=== PATIENT | male | born 1950 | race African-American/Black ===

== ENCOUNTER 2017-05-06 15:46 | Inpatient (IN) | payer OTHER ==
[~2017-05-06] VITALS: Ht 193 cm; Wt 94.8 kg
[2017-05-06 16:58] LABS: Alanine Aminotransferase 31 U/L (16-61); Albumin 3.6 g/dL (3.4-5.0); Alkaline Phosphatase 57 U/L (45-117); Anion Gap 6 (5-15); Aspartate Aminotransferase 23 U/L (15-37); BUN/Creatinine Ratio 8.2; Bilirubin, Total 2.4 mg/dL (0.2-1.0); Blood Urea Nitrogen 13 mg/dL (7-18); Calcium 8.9 mg/dL (8.5-10.1); Carbon Dioxide 25 mmol/L (21-32); Chloride 108 mmol/L (98-107); GFR African American 56 mL/min; GFR Non-African American 47 mL/min; Glucose 201 mg/dL (74-106); Magnesium 2.5 mg/dL (1.6-2.6); Potassium 4.3 mmol/L (3.5-5.1); Sodium 139 mmol/L (136-145); Total Protein 7.2 g/dL (6.4-8.2)
[2017-05-06 17:23] LABS: Basophils # (auto) 0 uL; Basophils % (auto) 0.3 % (0.0-2.0); Eosinophils # (auto) 0 uL; Eosinophils % (auto) 0.3 % (0.0-7.0); Hematocrit 44.1 % (41.0-53.0); Hemoglobin 14.6 g/dL (13.5-17.5); Lymphocytes % (auto) 28.1 % (10.0-50.0); Mean Corpuscular Hgb Conc. 33.2 g/dL (32.0-36.0); Mean Corpuscular Volume 96.3 fL (80.0-100.0); Monocytes # (auto) 0.5 uL; Monocytes % (auto) 6.7 % (0.0-12.0); Neutrophils # (auto) 4.7 uL; Neutrophils % (auto) 64.6 % (37.0-80.0); Nucleated Red Blood Cells % 0.7 %; Platelet Count (auto) 172 10^3/uL (140-450); Red Blood Cells 4.58 10^6/uL (4.5-5.90); Red Cell Distribution Width 13.3 % (11.8-14.3); White Blood Cell 7.3 10^3/uL (4.4-10.8)
[2017-05-06 17:39] LABS: INR 1.04 (0.9-1.15); Partial Thromboplastin Time 26.1 sec (22.64-33.71); Prothrombin Time 11.3 sec (9.37-12.3)
[2017-05-06] MEDS ORDERED: SODIUM CHLORIDE 0.9% 500 ML IV ONE (19:30)
[2017-05-06] MEDS ORDERED: DILTIAZEM HCL 25 MG/5 ML VIAL IV ONE (19:30)
[2017-05-06] MEDS ORDERED: DILTIAZEM HCL 60 MG TAB PO ONE (20:00)
[2017-05-06] MEDS ORDERED: ONDANSETRON HCL 4 MG/2 ML VIAL IV PRN (21:45)
[2017-05-06] MEDS: LABETALOL HCL 5 MG/ML ML 20ML VIAL IV ONE ×2 (21:45→22:32)
[2017-05-06] MEDS ORDERED: DOCUSATE SOD 100 MG CAP PO PRN (21:45)
[2017-05-06] MEDS ORDERED: TEMAZEPAM 15 MG CAP PO PRN (21:45)
[2017-05-06] MEDS ORDERED: NITROGLYCERIN 0.4 MG SL TAB SL PRN (21:45)
[2017-05-06] MEDS ORDERED: ATORVASTATIN 20 MG TAB PO ONE (21:45)
[2017-05-06] MEDS ORDERED: ACETAMINOPHEN 325 MG TAB PO PRN (21:45)
[2017-05-06] MEDS ORDERED: HYDROcodone-ACET 5/325MG TAB PO PRN (21:45)
[2017-05-06] MEDS ORDERED: MORPHINE SULFATE 4 MG/ML SYR/VIAL IV PRN (21:45)
[2017-05-06] MEDS: FAMOTIDINE 20 MG TAB PO SCH (22:45)
[2017-05-06] MEDS: APIXABAN 5 MG TAB PO SCH (22:45)
[2017-05-06] MEDS: ATORVASTATIN 20 MG TAB PO SCH (22:45)
[2017-05-06] MEDS: DONEPEZIL HYDROCHLORIDE 5 MG TAB PO SCH (22:45)
[2017-05-06] MEDS: METOPROLOL TARTRATE 25 MG TAB PO SCH (23:10)
[2017-05-07] VITALS (7 sets, daily range): BP systolic 118–141; BP diastolic 67–89
[2017-05-07] MEDS ORDERED: APIX2.5T OR (01:15)
[2017-05-07] MEDS ORDERED: DONE5TAB31 PO (01:16)
[2017-05-07] MEDS ORDERED: TAMS0.4C36 PO (01:16)
[2017-05-07] MEDS ORDERED: METO25TA5 PO (01:17)
[2017-05-07] MEDS ORDERED: ERGO1CAP23 PO (01:17)
[2017-05-07 06:53] LABS: Basophils # (auto) 0 uL; Basophils % (auto) 0.4 % (0.0-2.0); Eosinophils # (auto) 0.1 uL; Hemoglobin 13.7 g/dL (13.5-17.5); Lymphocytes # (auto) 2.9 uL; Lymphocytes % (auto) 40.1 % (10.0-50.0); Mean Corpuscular Hgb Conc. 33.4 g/dL (32.0-36.0); Mean Corpuscular Volume 95.8 fL (80.0-100.0); Monocytes # (auto) 0.7 uL; Monocytes % (auto) 9.3 % (0.0-12.0); Neutrophils # (auto) 3.5 uL; Neutrophils % (auto) 49.2 % (37.0-80.0); Platelet Count (auto) 171 10^3/uL (140-450); Red Blood Cells 4.28 10^6/uL (4.5-5.90); White Blood Cell 7.2 10^3/uL (4.4-10.8)
[2017-05-07 07:09] LABS: Potassium 3.9 mmol/L (3.5-5.1)
[2017-05-07 07:22] LABS: Albumin 3.2 g/dL (3.4-5.0); BUN/Creatinine Ratio 10.5; Bilirubin, Total 1.5 mg/dL (0.2-1.0); Calcium 8.9 mg/dL (8.5-10.1); Total Protein 6.4 g/dL (6.4-8.2)
[2017-05-07] MEDS: ASPirin 81 mg TAB PO SCH (10:38)
[2017-05-07] MEDS: METOPROLOL TARTRATE 25 MG TAB PO SCH ×2 (10:39→22:02)
[2017-05-07] MEDS: DONEPEZIL HYDROCHLORIDE 5 MG TAB PO SCH ×2 (10:39→22:00)
[2017-05-07] MEDS: FAMOTIDINE 20 MG TAB PO SCH ×2 (10:39→22:01)
[2017-05-07] MEDS: APIXABAN 5 MG TAB PO SCH ×2 (10:39→22:00)
[2017-05-07] MEDS ORDERED: METOPROLOL TARTRATE 25 MG TAB PO ONE (16:15)
[2017-05-07] MEDS ORDERED: VERAPAMIL 2.5MG/ML INJ 2ML VIAL IV ONE (17:30)
[2017-05-07] MEDS: ATORVASTATIN 20 MG TAB PO SCH (22:01)
[2017-05-08 04:43] VITALS: BP 130/77
[2017-05-08 09:00] VITALS: BP_SYST 138; BP_SYST 148; BP_DIAS 85; BP_DIAS 93
[2017-05-08] MEDS: DONEPEZIL HYDROCHLORIDE 5 MG TAB PO SCH ×2 (10:00→22:21)
[2017-05-08] MEDS: ASPirin 81 mg TAB PO SCH (10:35)
[2017-05-08] MEDS: APIXABAN 5 MG TAB PO SCH ×2 (10:36→22:20)
[2017-05-08] MEDS: METOPROLOL TARTRATE 25 MG TAB PO SCH ×2 (10:36→22:20)
[2017-05-08] MEDS: FAMOTIDINE 20 MG TAB PO SCH ×2 (10:36→22:21)
[2017-05-08 13:00] VITALS: BP 128/71
[2017-05-08] MEDS ORDERED: VERAPAMIL 2.5MG/ML INJ 2ML VIAL IV ONE (15:45)
[2017-05-08 17:00] VITALS: BP_SYST 128; BP_SYST 135; BP_DIAS 70; BP_DIAS 76
[2017-05-08 20:00] VITALS: BP 124/78
[2017-05-08] MEDS: DIGOXIN (250MCG/ML) 2 ML AMPULE IV SCH (20:34)
[2017-05-08] MEDS: ATORVASTATIN 20 MG TAB PO SCH (22:21)
[2017-05-08 22:41] VITALS: BP 124/78
[2017-05-09] MEDS: DIGOXIN (250MCG/ML) 2 ML AMPULE IV SCH ×2 (00:58→08:05)
[2017-05-09 05:09] VITALS: BP 157/93
[2017-05-09 08:20] VITALS: BP 149/96
[2017-05-09] MEDS: METOPROLOL TARTRATE 50 MG TAB PO SCH ×2 (11:33→21:31)
[2017-05-09] MEDS: APIXABAN 5 MG TAB PO SCH ×2 (11:33→21:17)
[2017-05-09] MEDS: ASPirin 81 mg TAB PO SCH (11:34)
[2017-05-09] MEDS: DONEPEZIL HYDROCHLORIDE 5 MG TAB PO SCH ×2 (11:34→21:17)
[2017-05-09] MEDS: FAMOTIDINE 20 MG TAB PO SCH ×2 (11:35→21:17)
[2017-05-09 11:50] VITALS: BP 142/92
[2017-05-09 17:00] VITALS: BP 141/81
[2017-05-09] MEDS: ATORVASTATIN 20 MG TAB PO SCH (21:17)
[2017-05-09 21:56] VITALS: BP 150/62
[2017-05-09] MEDS ORDERED: ASCORBIC ACID 500 MG TAB PO SCH (22:00)
[2017-05-10 04:37] VITALS: BP 139/79
[2017-05-10 08:00] VITALS: BP 135/75
[2017-05-10] MEDS: METOPROLOL TARTRATE 50 MG TAB PO SCH ×2 (09:48→21:26)
[2017-05-10] MEDS: DIGOXIN 0.125 MG TAB PO SCH (09:48)
[2017-05-10] MEDS: DONEPEZIL HYDROCHLORIDE 5 MG TAB PO SCH ×2 (09:49→21:15)
[2017-05-10] MEDS: APIXABAN 5 MG TAB PO SCH ×2 (09:49→21:15)
[2017-05-10] MEDS: ASPirin 81 mg TAB PO SCH (09:49)
[2017-05-10] MEDS: FAMOTIDINE 20 MG TAB PO SCH ×2 (09:49→21:15)
[2017-05-10 12:16] VITALS: BP 112/57
[2017-05-10 16:34] VITALS: BP 140/78
[2017-05-10] MEDS: ATORVASTATIN 20 MG TAB PO SCH (21:15)
[2017-05-10 22:08] VITALS: BP 136/80
[2017-05-11 04:45] VITALS: BP 140/98
[2017-05-11 06:51] LABS: Basophils # (auto) 0 uL; Basophils % (auto) 0.4 % (0.0-2.0); Eosinophils # (auto) 0.1 uL; Eosinophils % (auto) 1.7 % (0.0-7.0); Hematocrit 43.7 % (41.0-53.0); Hemoglobin 14.7 g/dL (13.5-17.5); Lymphocytes # (auto) 3.1 uL; Lymphocytes % (auto) 42.6 % (10.0-50.0); Mean Corpuscular Hemoglobin 32.2 pg (28.0-32.0); Mean Corpuscular Hgb Conc. 33.6 g/dL (32.0-36.0); Mean Corpuscular Volume 95.8 fL (80.0-100.0); Monocytes # (auto) 0.6 uL; Neutrophils # (auto) 3.4 uL; Neutrophils % (auto) 47.3 % (37.0-80.0); Nucleated Red Blood Cells % 0.2 %; Platelet Count (auto) 204 10^3/uL (140-450); Red Blood Cells 4.57 10^6/uL (4.5-5.90); Red Cell Distribution Width 12.8 % (11.8-14.3); White Blood Cell 7.2 10^3/uL (4.4-10.8)
[2017-05-11 07:00] LABS: Albumin 3.1 g/dL (3.4-5.0); BUN/Creatinine Ratio 13.1; Calcium 8.6 mg/dL (8.5-10.1); Potassium 4.7 mmol/L (3.5-5.1)
[2017-05-11 07:03] LABS: Partial Thromboplastin Time 27.9 sec (22.64-33.71); Prothrombin Time 10.9 sec (9.37-12.3)
[2017-05-11 07:23] LABS: Bilirubin, Total 1.2 mg/dL (0.2-1.0); Total Protein 6.6 g/dL (6.4-8.2)
[2017-05-11 09:00] VITALS: BP 129/80
[2017-05-11] MEDS: APIXABAN 5 MG TAB PO SCH ×2 (10:30→21:17)
[2017-05-11] MEDS: FAMOTIDINE 20 MG TAB PO SCH ×2 (10:30→21:18)
[2017-05-11] MEDS: DONEPEZIL HYDROCHLORIDE 5 MG TAB PO SCH ×2 (10:30→21:19)
[2017-05-11] MEDS ORDERED: ADENOSINE 79 MG in GIVE UN-DILUTED 0 ML IV ONE (11:15)
[2017-05-11 17:00] VITALS: BP 111/91
[2017-05-11] MEDS: DIGOXIN 0.125 MG TAB PO SCH (17:33)
[2017-05-11] MEDS: METOPROLOL TARTRATE 50 MG TAB PO SCH ×2 (17:34→21:31)
[2017-05-11] MEDS: ATORVASTATIN 20 MG TAB PO SCH (21:17)
[2017-05-11 21:50] VITALS: BP 125/84
[2017-05-12 05:00] VITALS: BP 127/57
[2017-05-12 08:00] VITALS: BP 143/75
[2017-05-12 08:38] VITALS: BP 143/75
[2017-05-12] MEDS: FAMOTIDINE 20 MG TAB PO SCH (09:46)
[2017-05-12] MEDS: APIXABAN 5 MG TAB PO SCH (09:46)
[2017-05-12] MEDS: DIGOXIN 0.125 MG TAB PO SCH (09:46)
[2017-05-12] MEDS: METOPROLOL TARTRATE 50 MG TAB PO SCH ×2 (09:47→10:50)
[2017-05-12] MEDS: DONEPEZIL HYDROCHLORIDE 5 MG TAB PO SCH (09:48)
[2017-05-12 12:30] VITALS: BP 125/82
== END 2017-05-12 15:55 | disposition home or self-care (01) | DRG 291 ==
LOC: EDBD 15:46 → ER 15:46 → TELE 15:47 → TELE-EAST 23:44
PROVIDERS: ADMIT Nurse Practitioner; ATTEND Internal Medicine
DX: I11.0 Hypertensive heart disease with heart failure (principal); N17.0 Acute kidney failure with tubular necrosis; I48.92 Unspecified atrial flutter; I48.0 Paroxysmal atrial fibrillation; I50.41 Acute combined systolic (congestive) and diastolic (congestive) heart failure; F01.50 Vascular dementia, unspecified severity, without behavioral disturbance, psychotic disturbance, mood disturbance, and anxiety; E78.5 Hyperlipidemia, unspecified; G47.00 Insomnia, unspecified; K59.00 Constipation, unspecified; I70.8 Atherosclerosis of other arteries; F02.80 Dementia in other diseases classified elsewhere, unspecified severity, without behavioral disturbance, psychotic disturbance, mood disturbance, and anxiety; G30.9 Alzheimer's disease, unspecified; M19.90 Unspecified osteoarthritis, unspecified site; N40.0 Benign prostatic hyperplasia without lower urinary tract symptoms; Z79.01 Long term (current) use of anticoagulants; Z79.899 Other long term (current) drug therapy
CPT/HCPCS: 36415; 71045; 78452; 80053; 82962; 83735; 83880; 84443; 84484; 85025; 85379; 85610; 85730; 93005; 93017; 93306; 96361; 96374; J0153

== ENCOUNTER 2019-03-18 19:32 | Emergency (ER) | payer OTHER ==
[~2019-03-18] VITALS: Ht 188 cm; Wt 99.3 kg
[~2019-03-18 19:32] MED LIST: APIX2.5T OR; DONE5TAB31 PO; ERGO1CAP23 PO; METO25TA5 PO; TAMS0.4C36 PO
[2019-03-18] MEDS ORDERED: ACETAMINOPHEN/CODEINE#3 (300/30mg) TAB PO ONE (23:45)
[2019-03-18] MEDS ORDERED: DexAMETHasone SOD PHOS 10MG/1ML VIAL INJ IM ONE (23:45)
[2019-03-18] MEDS ORDERED: COLCHICINE 0.6 MG CAP PO ONE (23:45)
[2019-03-19 00:45] VITALS: BP 140/80
== END 2019-03-19 01:05 | disposition home or self-care (01) ==
LOC: ER 19:32
DX: M10.071 Idiopathic gout, right ankle and foot (principal); E78.5 Hyperlipidemia, unspecified; I10 Essential (primary) hypertension
CPT/HCPCS: 36415; 73620; 84550; 96372; 99284; J1100; L3260